=== PATIENT | male | born 1990 | race Two or more races ===

== ENCOUNTER 2018-09-13 08:30 | Emergency (ER) | payer SELFPAY ==
[~2018-09-13] VITALS: Ht 172.7 cm; Wt 73.0 kg
[2018-09-13] MEDS ORDERED: SODIUM CHLORIDE 0.9% 1,000 ML IV ONE (09:40)
[2018-09-13 09:52] LABS: BASOPHILS % 0.6 % (0.0-2.0); EOSINOPHILS % 0.6 % (0.0-5.0); HEMATOCRIT. 43.4 % (42.0-52.0); HEMOGLOBIN. 15.1 g/dL (14.0-18.0); LYMPHOCYTES % 24.7 % (20.0-50.0); MEAN CORPUSCULAR HEMOGLOBIN 31.8 pg (28.0-32.0); MEAN CORPUSCULAR VOLUME 91.4 fL (80.0-94.0); MEAN PLATELET VOLUME 7.2 fl (7.4-10.4); NEUTROPHILS % 69.1 % (40.0-76.0); PLATELET 213 x1000/uL (130-400); RED BLOOD CELL COUNT 4.75 mill/uL (4.7-6.1); RED CELL DISTRIBUTION WIDTH 12.5 % (11.6-14.6)
[2018-09-13 09:59] LABS: CHLORIDE 110 mEq/L (98-107)
[2018-09-13 10:04] LABS: ETHANOL BLOOD 190 mg/dL
[2018-09-13 12:20] VITALS: BP 116/65
== END 2018-09-13 12:25 | disposition home or self-care (01) ==
LOC: ER 08:44
DX: S00.03XA Contusion of scalp, initial encounter (principal); F10.129 Alcohol abuse with intoxication, unspecified; F12.10 Cannabis abuse, uncomplicated; W18.39XA Other fall on same level, initial encounter; Y93.89 Activity, other specified; Y92.89 Other specified places as the place of occurrence of the external cause; Y99.8 Other external cause status; Y90.6 Blood alcohol level of 120-199 mg/100 ml
CPT/HCPCS: 36415; 70450; 80053; 80320; 85025; 99284; J7030; G0480